=== PATIENT | female | born 2005 | race Caucasian/White ===

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

== ENCOUNTER 2024-02-02 05:50 | Inpatient (IN) | payer OTHER, MEDICAID ==
[2024-02-02] MEDS ORDERED: Sodium Chloride 0.9% 10 ML Syringe FLUSH PRN (08:00)
[2024-02-02] MEDS ORDERED: Methylergonovine 0.2 MG/1 ML Amp IM PRN (08:00)
[2024-02-02] MEDS ORDERED: Sodium Chloride 0.9% 20 ML SDV IV PRN (08:00)
[2024-02-02] MEDS ORDERED: Butorphanol 2 MG/ML SDV IVPUSH PRN (08:00)
[2024-02-02] MEDS ORDERED: Sodium Chloride 0.9% 2.5 ML Syringe FLUSH PRN (08:00)
[2024-02-02] MEDS ORDERED: Carboprost Tromethamine 250 MCG/1 mL Vial IM PRN (08:00)
[2024-02-02] MEDS ORDERED: Lidocaine 1% 50 ML MDV INJECT PRN (08:00)
[2024-02-02] MEDS ORDERED: Misoprostol 200 MCG Tab PO PRN (08:00)
[2024-02-02] MEDS ORDERED: Tranexamic Acid in NACL,ISO-OS 1,000 MG in Premix Bag 1 BAG IV PRN (08:00)
[2024-02-02] MEDS ORDERED: Oxytocin/0.9 % Sodium Chloride 30 UNIT/500 ML BAG IV SCH (08:00)
[2024-02-02] MEDS ORDERED: Water For Irrigation,Sterile 1,000 ML Container IRR PRN (08:00)
[2024-02-02] MEDS ORDERED: ePHEDrine 50 MG/ML SDV IVPUSH PRN (08:18)
[2024-02-02] MEDS ORDERED: Phenylephrine HCl In 0.9% NaCl 1 MG/10 ML Syringe IVPUSH PRN (08:18)
[2024-02-02] MEDS ORDERED: dexmedeTOMIDine HCl 200 MCG/2 ML SDV EPIDUR SCH (08:30)
[2024-02-02 08:34] LABS: HEMATOCRIT 32.3 % (37.0-47.0); HEMOGLOBIN 9.5 g/dL (12.0-16.0); MEAN CORPUSCULAR HEMOGLOBIN 27.1 pg (28.0-32.0); MEAN CORPUSCULAR HGB CONC 29.4 g/dL (32.0-36.0); MEAN PLATELET VOLUME 9.2 fL (9.4-12.3); PLATELET COUNT,PLT 271 K/uL (150-400); RED BLOOD CELL COUNT 3.51 M/uL (4.10-5.30); WHITE BLOOD CELL COUNT,WBC 10.93 K/uL (4.5-13.5)
[2024-02-02] MEDS: Lactated Ringers 1,000 ML IV SCH (08:36)
[2024-02-02] MEDS: Ropivacaine HCl/PF 400 MG in Premix Bag 1 BAG EPIDUR SCH (14:13)
[2024-02-02] MEDS: Ondansetron 4 MG/2 ML SDV IVPUSH PRN (19:36)
[2024-02-02] MEDS ORDERED: Terbutaline 1 MG/ML SDV SUBCUT PRN (21:00)
[2024-02-02] MEDS: Oxytocin/0.9 % Sodium Chloride 30 UNIT/500 ML BAG IV SCH (21:19)
[2024-02-03 01:37] LABS: PH,UMBILICAL ARTERIAL 7.081 (7.18-7.38); PH,UMBILICAL VENOUS 7.266 (7.25-7.45)
[2024-02-03] MEDS: Lanolin 100% Cream 7 GM Tube TOP PRN (03:09)
[2024-02-03] MEDS: Witch Hazel Medicated Pads 40/Jar TOP PRN (03:09)
[2024-02-03] MEDS: Benzocaine/Menthol 20%-0.5% Spray 78 GM Cannister TOP PRN (03:09)
[2024-02-03] MEDS: Ibuprofen 800 MG Tab PO PRN (03:34)
[2024-02-03] MEDS: Acetaminophen 500 MG Tab PO PRN (03:35)
[2024-02-04 06:14] LABS: HEMATOCRIT 28.1 % (37.0-47.0); HEMOGLOBIN 8.8 g/dL (12.0-16.0)
[2024-02-04] MEDS: Docusate Sodium 100 MG Cap PO PRN (08:48)
== END 2024-02-05 00:50 | disposition home or self-care (01) | DRG 807 ==
LOC: MW.OBCHECK 05:50 → MW.OB 05:52 → MW.OBCHECK 05:59 → MW.OB 06:00 → OBSVTOIN 23:48 → MW.OB 02-03 04:08
PROVIDERS: ADMIT Obstetrics & Gynecology Obstetrics; ATTEND Obstetrics & Gynecology Obstetrics
PROC: 10E0XZZ Delivery of Products of Conception, External Approach (ICD-10-PCS; principal; 2024-02-03)
PROC: 3E0R3BZ Introduction of Anesthetic Agent into Spinal Canal, Percutaneous Approach (ICD-10-PCS; 2024-02-03)
PROC: 00HU33Z Insertion of Infusion Device into Spinal Canal, Percutaneous Approach (ICD-10-PCS; 2024-02-03)
DX: O42.02 Full-term premature rupture of membranes, onset of labor within 24 hours of rupture (principal); Z37.0 Single live birth; Z3A.38 38 weeks gestation of pregnancy
CPT/HCPCS: 36415; 51702; 59025; 59409; 82803; 84112; 85014; 85018; 85027; 86592; 86850; 86900; 86901; A9270-GY; J2405; J2590; J2795; J7120

== ENCOUNTER 2024-06-09 19:24 | Emergency (ER) | payer OTHER, MEDICAID ==
[2024-06-09 19:44] LABS: BASOPHILS ABSOLUTE AUTO 0.06 K/uL (0.00-0.30); BASOPHILS PERCENT AUTO 0.7 % (0.0-1.0); EOSINOPHILS ABSOLUTE AUTO 0.16 K/uL (0.00-0.70); EOSINOPHILS PERCENT AUTO 1.9 % (0.0-5.0); HEMATOCRIT 34.6 % (37.0-47.0); HEMOGLOBIN 11.3 g/dL (12.0-16.0); IMMATURE GRAN ABSOLUTE AUTO 0.01 K/uL (0.00-0.05); IMMATURE GRAN PERCENT AUTO 0.1 % (0.0-0.4); LYMPHOCYTES ABSOLUTE AUTO 2.59 K/uL (2.00-8.80); LYMPHOCYTES PERCENT AUTO 30.2 % (50.0-65.0); MEAN CORPUSCULAR HEMOGLOBIN 28.5 pg (28.0-32.0); MEAN CORPUSCULAR HGB CONC 32.7 g/dL (32.0-36.0); MEAN CORPUSCULAR VOLUME 87.4 fL (83.0-99.0); MEAN PLATELET VOLUME 8.4 fL (9.4-12.3); MONOCYTES ABSOLUTE AUTO 0.78 K/uL (0.10-1.40); MONOCYTES PERCENT AUTO 9.1 % (2.0-10.0); NEUTROPHILS ABSOLUTE AUTO 4.97 K/uL (1.50-8.50); PLATELET COUNT,PLT 408 K/uL (150-400); RED BLOOD CELL COUNT 3.96 M/uL (4.10-5.30); WHITE BLOOD CELL COUNT,WBC 8.57 K/uL (4.5-13.5)
[2024-06-09 20:01] LABS: APPEARANCE,URINE CLOUDY; BILIRUBIN,URINE NEGATIVE (NEGATIVE); COLOR,URINE RED; GLUCOSE,URINE NEGATIVE (NEGATIVE); KETONES,URINE TRACE mg/dL (NEGATIVE); LEUKOCYTE ESTERASE,URINE NEGATIVE (NEGATIVE); NITRITE,URINE NEGATIVE (NEGATIVE); OCCULT BLOOD,URINE LARGE (NEGATIVE); PROTEIN,URINE 100 mg/dL (NEGATIVE); UROBILINOGEN,URINE 0.2 EU/dL (<2.0)
[2024-06-09 20:06] LABS: BACTERIA,URINE RARE (NEGATIVE); EPITHELIAL CELLS,URINE FEW (NONE-FEW); RBC,URINE TOO NUMEROUS TO CT (0-2/HPF); WBC,URINE 0-2 (0-5/HPF)
[2024-06-09 20:13] LABS: ALBUMIN 3.6 g/dL (3.4-5.0); BILIRUBIN TOTAL 0.5 mg/dL (0.2-1.0); CALCIUM 9.2 mg/dL (8.5-10.1); CARBON DIOXIDE,CO2 27.9 mmol/L (21.0-32.0); CREATININE 0.8 mg/dL (0.6-1.0); EST CRCL DRUG DOSING (CG) 81.24 mL/min; POTASSIUM,K 3.6 mmol/L (3.5-5.1); PROTEIN TOTAL,TP 7.1 g/dL (6.4-8.2)
== END 2024-06-09 20:48 | disposition home or self-care (01) ==
LOC: MW.ED 19:24
DX: N92.0 Excessive and frequent menstruation with regular cycle (principal); Z75.3 Unavailability and inaccessibility of health-care facilities
CPT/HCPCS: 36415; 80053; 81001; 84702; 85025; 86900; 86901; 99283; 99284

== ENCOUNTER 2024-07-15 11:00 | Emergency (ER) | payer MEDICAID, OTHER | END 2024-07-15 13:18 | disposition home or self-care (01) | LOC: MW.ED 11:00 | DX: S63.501A Unspecified sprain of right wrist, initial encounter (principal); S63.502A Unspecified sprain of left wrist, initial encounter; Z75.3 Unavailability and inaccessibility of health-care facilities; X50.1XXA Overexertion from prolonged static or awkward postures, initial encounter | CPT/HCPCS: 29125; 73110-26-LT; 73110-26-RT; 73110-LT; 73110-RT; 99282; 99283-25 ==